=== PATIENT | female | born 2000 | race African-American/Black ===

== ENCOUNTER 2024-06-11 12:19 | Emergency (ER) | payer OTHER, SELFPAY ==
--- NOTE | ~2024-06-11 | XR_ITS ---
EXAMINATION: XR CHEST CLINICAL INFORMATION: Cough. COMPARISON: None available. TECHNIQUE: 2 views of the chest were obtained. FINDINGS: The lungs are well expanded. No focal consolidation. No pleural effusion. Cardiac silhouette is within normal limits. XR/XR chest 2V IMPRESSION: No acute abnormality. Electronically signed by: Vin Onofre MD 06/11/2024 02:20 PM EDT
--- NOTE | 2024-06-11 12:24 | ED_ITS ---
HPI - URI/Sore Throat General Chief Complaint: Upper Respiratory Symptoms Stated Complaint: cough phlem diff breathing Time Seen by Provider: 06/11/24 13:56 History of Present Illness HPI Narrative: COVID and flu tests were negative, chest x-ray was negative Related Data Previous Rx's ?Medication ?Instructions ?Recorded azithromycin 250 mg tablet See Rx Instructions PO .COMPLEX #6 06/11/24 (Zithromax Z-Lennox) tabs Allergies Allergy/AdvReac Type Severity Reaction Status Date / Time No Known Allergies Allergy Verified 06/11/24 12:26 [facility] Social History Social History Advance Directives: No Advance Directives Information Provided: Yes Do you have a plan to hurt others: No Plan Physical Exam Vital Signs: Vital Signs: Last Vital Signs Temp 98.2 F 06/11/24 12:25 Pulse 83 06/11/24 12:25 Resp 100 H 06/11/24 12:25 BP 133/76 06/11/24 12:25 Pulse Ox 100 06/11/24 12:25 O2 Del Method Room Air 06/11/24 12:25 BMI result Body Mass Index 37.5 Course Course Course Narrative: This is a Rapid Medical Exam performed in triage by Aysha Cook PA-C. Full HPI, ROS and PE to be performed by primary ED provider. 24-year-old female presenting to the ED c/o fever, prod cough, myalgias, chest discomfort, exertional dyspnea x 8 days. PE: talking in complete sentences, lungs CTA Plan: EKG, viral testing, CXR Medical Decision Making Lab Data Labs: Lab Results 06/11/24 Range/Units 12:47 Influenza Type A (PCR) NEGATIVE (Negative) Influenza Type B (PCR) NEGATIVE (Negative) RSV RNA Qual (PCR) NEGATIVE (Negative) SARS-CoV-2 RNA (RT-PCR) NEGATIVE (Negative) Discharge Plan Discharge Clinical Impression: Bronchitis Patient Disposition: Home, Self-Care Additional Instructions: Chest x-ray and COVID and flu tests were all negative, RSV was negative to As you have been coughing without improvement for 10 days this may be an early pneumonia not seen on x-ray or it may just be a viral cough meaning a chest cold You have a prescription for antibiotic it is safe to wait a couple of days to see if it just gets better or you can start the antibiotic If cough worsens or you develop a fever or increased sputum definitely start the antibiotic Return difficulty breathing any worse condition or any concerns Prescriptions: New azithromycin [Zithromax Z-Lennox] 250 mg tablet See Rx Instructions .ROUTE .COMPLEX Qty: 6 0RF Rx Instructions: For 250 mg dose pack: take 500 mg today (day 1), then 250 mg for 4 days (days 2-5) Stand Alone Forms: Work/School Release Print Language: Luxembourgish
[2024-06-11 12:25] VITALS: BP 133/76; PULSE 83; RESP 100; TEMP 36.8; O2SAT 100; BMI 37.5
[2024-06-11 13:35] LABS: Influenza A PCR NEGATIVE (Negative); Influenza B PCR NEGATIVE (Negative); Resp Syncy Virus RNA Qual PCR NEGATIVE (Negative); SARS COV2 PCR INHOUSE NEGATIVE (Negative)
[2024-06-11 16:07] VITALS: BP 133/76; PULSE 83; RESP 100; TEMP 36.8; O2SAT 100
== END 2024-06-11 16:07 | disposition home or self-care (01) ==
PROVIDERS: Physician Assistant; Emergency Provider Emergency Medicine
DX: J40 Bronchitis, not specified as acute or chronic (principal); Z03.818 Encounter for observation for suspected exposure to other biological agents ruled out; R50.9 Fever, unspecified
CPT/HCPCS: 0241U; 71046; 99282; 99283